=== PATIENT | male | born 1955 | race African-American/Black ===

== ENCOUNTER 2018-10-27 09:12 | Day surgery (SDC) | payer MEDICARE, OTHER ==
[2018-10-27] MEDS ORDERED: FLUMAZENIL INJ 0.5 MG/5 ML VIAL ONE (09:39)
[2018-10-27] MEDS ORDERED: DIPHENHYDRAMINE HCL 50 MG/ML VIAL ONE (09:39)
[2018-10-27] MEDS ORDERED: ONDANSETRON HCL INJ/PF 4 MG/2 ML SDV ONE (09:39)
[2018-10-27] MEDS ORDERED: EPINEPHRINE INJ 1 MG/10 ML DISP.SYRIN ONE (09:39)
[2018-10-27] MEDS ORDERED: NALOXONE HCL INJ/PF 0.4 MG/1 ML SDV ONE (09:39)
[2018-10-27] MEDS ORDERED: GLUCAGON,HUMAN RECOMB 1 MG INJ ONE (09:40)
[2018-10-27] MEDS: MIDAZOLAM 2 MG/2 ML INJ ONE ×2 (09:42→09:46)
[2018-10-27] MEDS: FENTANYL CITRATE INJ/PF 100 MCG/2 ML AMPUL ONE ×2 (09:44→09:48)
--- NOTE | 2018-10-27 09:58 | Operative Report ---
Operative Report DATE OF SURGERY: 10/27/18 Operative Report: The risks, benefits and alternatives of the procedure including the risk of bleeding, perforation requiring surgery have been explained to the patient in detail and informed consent is obtained. The patient is placed in a left, lateral decubital position. Timeout was called. Propofol medication is administered. A rectal examination is done which did not reveal any masses, tears or fissures. An Olympus videoscope was introduced into the patient's rect um. The scope was then carefully advanced all the way to the cecum. The cecum is identified by the usual anatomical landmarks including the ileocecal valve as well as the appendiceal office. Photodocumentation is obtained. The scope was then sequentially pulled back via the various segments of the colon including the ascending colon, hepatic flexure, transverse colon, splenic flexure, descending colon finding to the rectosigmoid portions of the colon. Retroflexion maneuvers performed. PREOPERATIVE DIAGNOSIS: Colorectal cancer screening POSTOPERATIVE DIAGNOSIS: Normal screening colonoscopy OPERATION: Diagnostic colonoscopy SURGEON: BÁRBARA MERRITT ANESTHESIA: Moderate Sedation - 4 mg of Versed, 75 mcg of fentanyl. Conscious sedation monitoring time 30 minutes. TISSUE REMOVED OR ALTERED: None. COMPLICATIONS: None. ESTIMATED BLOOD LOSS: None. INTRAOPERATIVE FINDINGS: As noted above. PROCEDURE: Patient tolerated the procedure well. No immediate post procedure complications are noted. Patient is discharged in good condition. Discharge date 10/27/2018. Discharge diet: Regular. Discharge activity: Regular. 2 to 3-week follow-up to discuss findings. 10-year surveillance colonoscopy.
[2018-10-27 11:00] VITALS: BP 108/69
== END 2018-10-27 11:00 | disposition home or self-care (01) ==
LOC: END 09:12
PROVIDERS: ATTEND Internal Medicine Gastroenterology
DX: Z86.010 Personal history of colon polyps (principal); Z12.11 Encounter for screening for malignant neoplasm of colon; Z13.89 Encounter for screening for other disorder
CPT/HCPCS: G0121; J2250; J3010; 45378; J0171; J1200; J1610; J2310; J2405; J3490